=== PATIENT | female | born 1985 | race Caucasian/White ===

== ENCOUNTER 2017-10-22 19:46 | Emergency (ER) | payer SELFPAY ==
[~2017-10-22] VITALS: Ht 167.6 cm; Wt 49.0 kg
[2017-10-22] MEDS ORDERED: LEVAQUIN750 MG PO (21:10)
[2017-10-22] MEDS ORDERED: VENTOLIN HFA18 GM IH (21:10)
[2017-10-22 21:27] VITALS: BP 123/79
== END 2017-10-22 21:28 ==
LOC: EME 19:46
DX: T40.1X1A Poisoning by heroin, accidental (unintentional), initial encounter (principal); J18.9 Pneumonia, unspecified organism; F17.200 Nicotine dependence, unspecified, uncomplicated
CPT/HCPCS: 71046; 94640; 99281; 99284